=== PATIENT | female | born 2005 | race Caucasian/White ===

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

== ENCOUNTER 2023-11-15 07:14 | Emergency (ER) | payer OTHER, SELFPAY ==
--- NOTE | ~2023-11-15 | CT_ITS ---
EXAMINATION: CT abdomen pelvis w con DATE: 11/15/2023 10:20 INDICATION: Right upper quadrant and right lower quadrant abdominal pain with nausea and vomiting TECHNIQUE: Computed tomography (CT) of the abdomen and pelvis was performed with 100 mL Omnipaque-350 intravenous contrast. Automated exposure control and iterative reconstruction technique were employe d. The dose-length product was 463.93 mGy-cm. COMPARISON: 05/12/2022 FINDINGS: Lung bases are clear. Heart size is normal. No pericardial or pleural effusion. There are few subtle low density gallstones at the neck of the gallbladder. There is suggestion of trace pericholecystic f luid but no dilation the gallbladder or wall thickening to suggest acute cholecystitis. No intra or e xtra hepatic biliary ductal dilation. Spleen, pancreas, bilateral adrenal glands and kidneys are norm al. Bowels including the appendix are normal. Bladder, anteverted uterus and left adnexa are unremark able. 2.1 cm peripherally enhancing partially collapsed right corpus luteum cyst. Trace amount of lik rcisty physiologic free fluid in the cul-de-sac. No abscess or free intraperitoneal gas. No pathological ly enlarged abdominal or pelvic lymphadenopathy. Mild thoracolumbar spondylosis. IMPRESSION: 1. Cholelithiasis with trace pericholecystic fluid but without dilation or wall thickening of the gal lbladder which is equivocal for acute cholecystitis. Correlate for Delcid sign and could consider HID A scan for further evaluation as clinically indicated. Reviewed, dictated and finalized at location A. IMPRESSION: 1. Cholelithiasis with trace pericholecystic fluid but without dilation or wall thickening of the gallbladder which is equivocal for acute cholecystitis. Jovita elate for Delcid sign and could consider HIDA scan for further evaluation as cl inically indicated.
[2023-11-15 07:22] VITALS: BP 138/90; BP 146/94; PULSE 104; PULSE 92; RESP 18; RESP 20; TEMP 37.6; O2SAT 100; O2SAT 99
--- NOTE | 2023-11-15 07:24 | ED.ABDPAIN ---
HPI - Abdominal Pain General Chief Complaint: Abdominal Pain Stated Complaint: RLQ abd pain Time Seen by Provider: 11/15/23 07:18 History of Present Illness HPI narrative: 18-year-old goes by they/them/their presents with nausea and right upper quadrant pain moving to their right lower quadrant, and back, had similar symptoms about a week ago, today it started after they had macaroni and cheese with extra cheese. No urinary symptoms. Related Data Allergies Allergy/AdvReac Type Severity Reaction Status Date / Time No Known Allergies Allergy Verified 11/15/23 08:46 Review of Systems Review of Systems: All systems reviewed & are unremarkable except as noted in HPI and below PMFSH Past Medical History Medical History (Updated 11/15/23 @ 11:09 by Michelle Otero MD) Type 1 diabetes Surgical History Surgical History (Updated 05/12/22 @ 05:43 by Radha Greene MD) No pertinent past surgical history Social History Social History (Updated 05/12/22 @ 05:43 by Radha Greene MD) Smoking status: Never smoker Exam Narrative: EXAMINATION OF ORGAN SYSTEMS/BODY AREAS: Constitutional: Vital signs per nursing GENERAL: Appears tearful/uncomfortable HEAD: Normal with no signs of head trauma. EYES: EOMI, conjunctiva normal ENT: Hearing grossly intact LUNGS: Nonlabored breathing. HEART: [Regular rate and rhythm] ABD: [Soft], [tender to palpation RUQ, R CVA tenderness] EXT: Normal range of motion SKIN: [No rashes or lesions.] NEURO: [Alert and oriented x 3. No gross focal sensory or strength deficits.] PSYCH: Normal affect Course Vital Signs Vital signs: Vital Signs Temperature 99.6 F 11/15/23 07:22 Pulse Rate 104 H 11/15/23 07:22 Respiratory Rate 18 11/15/23 07:22 Blood Pressure 146/94 H 11/15/23 07:22 Pulse Oximetry 99 11/15/23 07:22 Oxygen Delivery Room Air 11/15/23 07:22 Temperature 99.4 F 11/15/23 09:55 Pulse Rate 101 H 11/15/23 09:55 Respiratory Rate 18 11/15/23 09:55 Blood Pressure 145/87 H 11/15/23 09:55 Pulse Oximetry 100 11/15/23 09:55 Oxygen Delivery Room Air 11/15/23 07:22 MDM - Abdominal Pain MDM Narrative Medical decision making narrative: Patient presents with right lower quadrant pain, on exam she has turned to the right upper quadrant and right flank, is tearful and appears slightly uncomfortable, based on history and exam I am concerned for possible biliary colic especially with onset of symptoms after eating macaroni cheese, also consider possible appendicitis, ovarian cyst, appendicitis. Labs and imaging will be obtained. IV morphine and Zofran ordered for symptoms. CT consistent with cholelithiasis with very minimal pericholecystic fluid, they have no changes LFT her bilirubin and overall without any fevers or chills a lower concern for cholecystitis and I suspect more likely biliary colic, I discussed this with the patient and their mother at bedside, mother tells me that every woman and her family has had together gallbladder taken out so they are familiar with this, I have discussed strict precautions they are agreeable to the with follow-up to General surgery for consultation for likely elective cholecystectomy. Lab Data 11/15/23 07:37 11/15/23 07:37 Labs: Lab Results 11/15/23 11/15/23 Range/Units 07:37 09:53 WBC 11.9 H (4.5-10.0) K/mm3 RBC 4.88 (4.2-5.4) M/mm3 Hgb 14.6 (12.0-15.0) g/dL Hct 41.7 (37.0-47.0) % MCV 85.5 (80-100) fl MCH 29.9 (26-34) pg MCHC 35.0 (32-36) g/dl RDW 12.3 (11.5-14.5) % Plt Count 231 (150-375) k/mm3 MPV 10.3 (7.4-10.4) fl Immature Gran % (Auto) 0.4 (0-0.5) % Neut % (Auto) 75.6 H (45.5-73.1) % Lymph % (Auto) 15.9 L (18.3-44.2) % Rich % (Auto) 7.2 (2.6-8.5) % Eos % (Auto) 0.5 (0-4.4) % Baso % (Auto) 0.4 (0.2-1.2) % Lymph # (Auto) 1.90 (0.9-3.2) K/mm3 Rich # (Auto) 0.9 H (0.1-0.6) K/mm3
[2023-11-15] MEDS: ONDANSETRON INJ 4 MG/2 ML VIAL IV PUSH (07:40)
--- NOTE | 2023-11-15 07:48 | PC.NURSE ---
Informed pt of needing a urine sample, pt states she urinated at home before coming and is unable to urinate at this time.
[2023-11-15 07:49] LABS: Basophils Absolute Auto 0.1 K/mm3 (0.0-0.1); Basophils Percent Auto 0.4 % (0.2-1.2); Eosinophils Absolute Auto 0.1 K/mm3 (0-0.3); Eosinophils Percent Auto 0.5 % (0-4.4); Hematocrit 41.7 % (37.0-47.0); Hemoglobin 14.6 g/dL (12.0-15.0); Immature Granulocyte Absolute 0.05 K/mm3 (0.00-0.031); Immature Granulocyte Percent A 0.4 % (0-0.5); Lymphocytes Percent Auto 15.9 % (18.3-44.2); Mean Corpuscular Hemoglobin 29.9 pg (26-34); Mean Corpuscular Volume 85.5 fl (80-100); Mean Platelet Volume 10.3 fl (7.4-10.4); Monocytes Absolute Auto 0.9 K/mm3 (0.1-0.6); Monocytes Percent Auto 7.2 % (2.6-8.5); Neutrophils Percent Auto 75.6 % (45.5-73.1); Platelet Count Result 231 k/mm3 (150-375); Red Blood Count 4.88 M/mm3 (4.2-5.4); Red Cell Distribution Width 12.3 % (11.5-14.5); White Blood Count 11.9 K/mm3 (4.5-10.0)
[2023-11-15 08:00] LABS: Alanine Aminotransferase 16 U/L (6-35); Albumin Level 4.4 g/dL (3.5-5.1); Alkaline Phosphatase 75 U/L (38-126); Anion Gap 11 mmol/L (4-12); Aspartate Amino Transferase 27 U/L (14-36); Bilirubin,Total 0.6 mg/dL (0.2-1.3); Blood Urea Nitrogen 19 mg/dL (7-17); Carbon Dioxide 25 mmol/L (22-30); Chloride 100 mmol/L (98-107); Estimated Glomerular Filt Rate > 60; Glucose 156 mg/dL (65-110); Lipase 128 U/L (23-300); Potassium 3.6 mmol/L (3.4-5.0); Sodium 136 mmol/L (137-145)
[2023-11-15 09:14] LABS: Beta HCG Quantitative < 2.39 mIU/ML
--- NOTE | 2023-11-15 09:43 | PC.NURSE ---
test added on to blood work per
[2023-11-15 09:55] VITALS: BP 145/87; PULSE 101; RESP 18; TEMP 37.4; O2SAT 100
[2023-11-15 10:06] LABS: Appearance Urine Clear (Clear); Color Urine Yellow (Yellow)
[2023-11-15 10:08] LABS: Blood Urine Negative (Negative); Glucose Urine UA 1+ (Negative); Ketones Urine 3+ (Negative); Nitrate Urine Negative (Negative); Protein Urine Trace (Negative)
[2023-11-15 10:09] LABS: Add Urine Microscopic? YES; Bilirubin Urine Negative (Negative); Leukocyte Esterase Ur Negative LEU/UL (Negative); Urobilinogen Urine 0.2 mg/dL (0.2-1.0)
[2023-11-15 10:25] LABS: Bacteria Urine 2+ /hpf; Need Manual Microscopic Reviewed; Non Pathogenic Casts 0-2; Squamous Epithelial Cell Urine Few /hpf (Few); WBC Urine 0-5 /hpf (0-3)
[2023-11-15] MEDS: LACTATED RINGERS 1,000 ML 999 ML IV CONT (10:53)
[2023-11-15 11:03] VITALS: BP 144/89; PULSE 111; RESP 16; TEMP 36.7; O2SAT 100
[2023-11-15] MEDS: KETOROLAC 15 MG/ML VIAL (*BKC) IV PUSH (11:22)
[2023-11-15 11:29] VITALS: TEMP 37.1
== END 2023-11-15 11:32 | disposition home or self-care (01) ==
PROVIDERS: Emergency Provider Emergency Medicine
DX: K80.50 Calculus of bile duct without cholangitis or cholecystitis without obstruction (principal); E10.9 Type 1 diabetes mellitus without complications
CPT/HCPCS: 36415; 74177; 80053; 81001; 83690; 84702; 85025; 96361; 96374; 96375; 99284; J1885; J2405; J7120; Q9967